=== PATIENT | male | born 1980 | race Caucasian/White ===

== ENCOUNTER 2017-07-15 07:17 | Inpatient (IN) | payer OTHER ==
[~2017-07-15] VITALS: Ht 185.4 cm; Wt 135.2 kg
--- NOTE | 2017-07-15 07:40 | ED GI/GU/ABDOMINAL COMPLAINT ---
History of Present Illness General Chief Complaint: Abdominal Pain/Flank Pain Stated Complaint: SIDED ABD PAIN Source: patient, family Exam Limitations: no limitations Vital Signs & Intake/Output Vital Signs & Intake/Output Vital Signs Date Time Temp Pulse Resp B/P B/P Pulse O2 O2 Flow FiO2 Mean Ox Delivery Rate 07/15 1337 96.4 73 18 152/98 96 07/15 1212 97.9 82 18 148/82 98 Nasal 70% Cannula 07/15 1055 98 Nasal 60% Cannula 07/15 0904 88 Nasal 6.0L Cannula 07/15 0904 97.5 86 18 180/98 94 Nasal 2.0L Cannula 07/15 0840 93 Non 100% ReBreather 07/15 0747 97 Room Air 07/15 0721 72 18 174/131 98 Room Air Allergies Coded Allergies: No Known Allergies (07/15/17) Reconcile Medications No Known Home Medications Triage Note: COMPLAINS OF SUDDEN ONSET SHARP LLQ ABD PAIN AND NAUSEA AT 0500 . UNABLE TO GET TEMP AT TRIAGE. PT NOTED TO BE SWEATY AND BP ELEVATED Triage Nurses Notes Reviewed? yes HPI: Patient is an otherwise healthy 36-year-old male who presents today with acute onset left lower quadrant and left flank pain which woke him from sleep early this morning. He is diaphoretic, clammy, and clearly in significant distress. He denies any history of abdominal surgery, intra-abdominal pathology in the past, diverticulitis, or ureterolithiasis. He has no chest pain, dyspnea, or other constitutional symptoms. Time of onset was 5 AM, acute, unrelenting, not made worse by position. Past History Travel History Traveled to [place] past 21 day No Medical History Any Pertinent Medical History? none Neurological: NONE EENT: NONE Cardiovascular: NONE Respiratory: NONE Hepatic: NONE Renal: NONE Musculoskeletal: NONE Psychiatric: NONE Endocrine: NONE Blood Disorders: NONE Cancer(s): NONE Surgical History Surgical History: none Psychosocial History What is your primary language Maltese Tobacco Use: Never used ETOH Use: denies use Illicit Drug Use: denies illicit drug use Family History Hx Contributory? No Review of Systems Review of Systems Constitutional: Reports: see HPI, diaphoresis. EENTM: Reports: no symptoms. Respiratory: Reports: no symptoms. Cardiovascular: Reports: no symptoms. GI: Reports: see HPI, abdominal pain, nausea. Genitourinary: Reports: see HPI. Denies: dysuria, frequency, hematuria, hesitation, pain. Musculoskeletal: Reports: back pain. Skin: Reports: no symptoms. Neurological/Psychological: Reports: no symptoms. Hematologic/Endocrine: Reports: no symptoms. Immunologic/Allergic: Reports: no symptoms. All Other Systems: Reviewed and Negative Physical Exam Physical Exam Gastrointestinal: tenderness Comments: General: Moderate to severe discomfort from flank pain. HEENT: Inspection of the head reveals a normocephalic cranium with no signs of trauma. Ophtho: Extraocular muscles are intact and pupils are equal and reactive to light bilaterally with no afferent pupillary defect. The sclera are noninjected , and there is no obvious discharge. Neck: The trachea is midline, there is no obvious asymmetry or mass over the thyroid, and there is no midline cervical spine tenderness Respiratory: The lungs are clear and equal to auscultation bilaterally without wheezes, rales, or rhonchi. The patient exhibits no signs of labored breathing. Cardiac: Regular rhythm and non-tachycardic without appreciable murmurs on auscultation. No obvious JVD. GI: Examination of the abdomen reveals left-sided flank pain from the left CVA region radiating around in a ureteral distribution toward the left lower quadrant. Negative Tai's sign, negative McBurney's point tenderness, negative Yousuf sign, negative Schroeder-Sneed sign, and no signs of peritonitis whatsoever on percussion or deep palpation. The skin is intact with no sign of trauma or infection. : Deferred Neuro: The patient is oriented to person, place, time, and situation, with no obvious focal motor deficits. There were no sensory deficits, and the patient exhibit purposeful movement of all 4 extremities. Cranial nerves II through XII are intact, and gait is normal. Behavioral: Anxious and in distress. Dermatologic: Dermatologic examination reveals no diffuse rashes or exanthems, no petechiae, no ecchymoses, and no other signs of erythema or infection. Core Measures ACS in differential dx? No Sepsis Present: No Sepsis Focused Exam Completed? No Progress Differential Diagnosis: AMI, PE, MYOCARDITIS, CARDIOMYOPATHY,MULTIPLE OTHER POSSIBILITIES Plan of Care: Orders Procedure Date/time Status CBC WITHOUT DIFFERENTIAL 07/16 0600 Active EKG 07/16 0000 Active Regular Diet 07/15 D Active EKG 07/15 1800 Active Pathway - chart 07/15 1316 Active House Staff 07/15 1316 Active Code Status 07/15 1316 Active ECHOCARDIOGRAM 07/15 1316 Active Patient Data 07/15 1259 Active TROPONIN LEVEL 07/15 1250 Active Add-on Test (ER Only) 07/15 1249 Active ED Holding Orders 07/15 1227 Active Admit to inpatient 07/15 1227 Active Code Status 07/15 1227 Complete OXYGEN SETUP (GEN) 07/15 1055 Complete EKG 07/15 1005 Active Add-on Test (ER Only) 07/15 0909 Active THERAPIST ORDERS 07/15 0900 Complete OXYGEN SETUP (GEN) 07/15 0900 Complete OXYGEN SETUP (GEN) 07/15 0850 Complete AEROSOL (GEN) 07/15 0840 Complete TROPONIN LEVEL 07/15 0802 Complete B-TYPE NATRIURETIC PEP (BNP) 07/15 0802 Complete Intake & Output 07/15 0747 Active URINALYSIS 07/15 0735 Complete COMPREHENSIVE METABOLIC PANEL 07/15 0735 Complete CBC WITHOUT DIFFERENTIAL 07/15 0735 Complete TRC EVALUATION (GEN) 07/15 UNK Active THERAPIST ORDERS 07/15 UNK Complete VTE Mechanical Prophylaxis 07/15 UNK Active Intake & Output 07/15 UNK Active Laboratory Tests 07/15/17 1352: Troponin I Pending 07/15/17 0940: Urine Color YEL, Urine Clarity HAZY H, Urine pH 6.0, Ur Specific [place] 1.015, Urine Protein NEG, Urine Ketones NEG, Urine Nitrite NEG, Urine Bilirubin NEG, Urine Urobilinogen 0.2, Ur Leukocyte Esterase NEG, Ur Microscopic SEDIMENT EXAMINED, Urine RBC 25-50 H, Urine WBC 1-3 H, Ur Epithelial Cells FEW, Hyaline Casts RARE H, Urine Hemoglobin LARGE H, Urine Glucose NEG 07/15/17 0859: Bkf-X-Lvzohsbwhbp Pept Cancelled, D-Dimer High Sensitivty Cancelled 07/15/17 0802: Anion Gap 10, Estimated GFR > 60, BUN/Creatinine Ratio 15.0, Glucose 150 H, Calcium 8.9, Total Bilirubin 0.9, AST 18, ALT 37, Alkaline Phosphatase 56, Troponin I 0.06, Xcr-Y-Dziggwwtrpz Pept 69.8, Total Protein 6.6, Albumin 3.8, Globulin 2.8, Albumin/Globulin Ratio 1.4, CBC w Diff NO MAN DIFF REQ, RBC 5.74, MCV 85.6, MCH 29.4, MCHC 34.3, RDW 12.9, MPV 7.3 L, Gran % 79.6 H, Lymphocytes % 15.6 L, Monocytes % 3.2, Eosinophils % 1.3, Basophils % 0.3, Absolute Granulocytes 7.9 H, Absolute Lymphocytes 1.6, Absolute Monocytes 0.3, Absolute Eosinophils 0.1, Absolute Basophils 0 Initial ED EKG: normal axis, none, normal intervals, normal p-waves, normal QRS complex, normal sinus rhythm, NSR, rhythm Comments: 0930 hours: Patient had an acute episode of onset of dyspnea. His lungs sounded rhonchorous diffusely with expiratory wheezing. It was unclear whether this was a reaction to the hydromorphone or something else entirely. I prescribed a DuoNeb which was administered by respiratory, as well as dexamethasone 10 mg. We stopped his fluids and obtained a chest x-ray which showed bilateral mild pulmonary edema. PE was considered when the patient's oxygen saturation dropped to the low 80s despite nasal cannula oxygenation. We upgraded him to high flow nasal cannula oxygenation when nonrebreather mask became contraindicated by nausea and vomiting. Oxygenation stabilized, and thankfully CT showed no evidence of PE. It did show groundglass opacity and unexplained pulmonary edema. This is as of yet unexplained. Cardiology paged. Departure Departure Time of Disposition: 1200 Disposition: STILL A PATIENT Condition: Stable Clinical Impression Primary Impression: Flash pulmonary edema Secondary Impressions: Kidney stone Departure Forms: Customer Survey General Discharge Information Prescriptions: Current Visit Scripts No Known Home Medications Admission Note Spoke With: Sherry MCKEON,Antoni Haddad Documentation of Exam: Documentation of any treatments & extenuating circumstances including Concerns Regarding Discharge (functional status, medication knowledge or non-compliance, living conditions, etc.) that warrant an admission rather than observation: Patient presented today for flank pain which was determined to be secondary to ureterolithiasis with a 4 mm stone visualized on CT. Pain was controlled and urology was consulted for recommendations. However, after fluid resuscitation the patient, who previously has had no cardiopulmonary disease, developed acute onset dyspnea with rhonchorous breath sounds and crackles. Chest x-ray showed bilateral pulmonary edema and subsequent CT scan to rule out PE showed no clot but confirmed groundglass opacity with bilateral fluid overload. BNP was negative, however the reason for the patient's pulmonary edema is unknown. Given this, he will require hospitalization for further cardiology workup, cardiac monitoring, and oxygen administration. I feel that discharge home would pose an unacceptably high risk of decompensation and morbidity. Critical Care Note Critical Care Note Critical Care Time: 30-74 min Comments: Critical care time spent >60 minutes. The patient was suffering from a critical illness that acutely impairs one or more vital organ systems and there is a high probability of imminent or life threatening deterioration in the patient's condition. During this time I was personally involved in activities including high flow nasal cannula oxygen therapy, beta agonists, consideration of noninvasive positive pressure ventilation, consulting multiple specialists, and decision making of high complexity to assess, manipulate, and support vital organ system failure (in this case, flash pulmonary edema without provocation) and/or to prevent further life threatening deterioration of the patient's condition. The failure to initiate these interventions on an urgent basis would likely result in sudden, clinically significant or life threatening deterioration in the patient's condition.
--- NOTE | 2017-07-15 08:20 | CT SCAN REPORT ---
EXAMINATION: CT ABDOMEN AND PELVIS WITHOUT CONTRAST CLINICAL INFORMATION: Left-sided pain. Nephrolithiasis. COMPARISON: None. TECHNIQUE: Contiguous axial thin section helical images of the abdomen and pelvis were performed without oral or IV contrast. The data set was reformatted in the coronal and sagittal planes and reviewed on an independent workstation. DLP: 1483 mGy-cm. FINDINGS: There is mild dependent bibasilar atelectasis. The visualized lung bases are otherwise clear. The visualized portions of the heart are unremarkable. The liver is of normal size and decreased attenuation without focal lesions nor intrahepatic biliary ductal dilation. A normal gallbladder is identified. There is no wall thickening or discernible pericholecystic fluid. The pancreas and adrenal glands are unremarkable. The spleen is of normal contour and attenuation. It is enlarged measuring 13.9 cm in greatest dimension. Both kidneys are of normal size and attenuation without nephrolithiasis. There is left grade 2 hydroureteronephrosis secondary to a 4 mm obstructive left UVJ calculus. There is left periureteral and perinephric stranding. There is no abdominal free fluid. There is neither mesenteric nor retroperitoneal lymphadenopathy. Normal unopacified loops of small and large bowel are identified. A normal appendix is identified. There is no pelvic free fluid. The urinary bladder is unremarkable. There is neither pelvic nor inguinal lymphadenopathy. Bone windows: Neither sclerotic nor lytic bone lesions are identified. There are bilateral L5 pars defects. There is mild anterior displacement of L5 in relation to S1. There is moderate disc height loss at L5/S1. IMPRESSION: Left grade 2 hydroureteronephrosis secondary to an obstructive 4 mm calculus at the left UVJ. Hepatic steatosis. Mild splenomegaly. 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
[2017-07-15 08:21] LABS: ABSOLUTE BASOPHIL COUNT 0 /CUMM (0.0-0.2); ABSOLUTE EOSINOPHIL COUNT 0.1 /CUMM (0.0-0.7); ABSOLUTE GRANULOCYTE CT 7.9 /CUMM (1.4-6.5); ABSOLUTE LYMPH COUNT 1.6 /CUMM (1.2-3.4); ABSOLUTE MONOCYTE COUNT 0.3 /CUMM (0.10-0.60); BASOPHIL % 0.3 % (0.0-2.0); EOSINOPHIL % 1.3 % (0-5); GRANULOCYTE % 79.6 % (42.2-75.2); HEMATOCRIT 49.1 % (42-52); MEAN CORPUSCULAR HGB 29.4 PG (27.0-31.0); MEAN CORPUSCULAR HGB CONC 34.3 G/DL (33.0-37.0); MEAN CORPUSCULAR VOLUME 85.6 FL (80.0-94.0); MEAN PLATELET VOLUME 7.3 FL (7.4-10.4); PLATELET COUNT 180 /CUMM (130-400); RBC DISTRIBUTION WIDTH 12.9 % (11.5-14.5); RED BLOOD CELL CT 5.74 /CUMM (4.70-6.10); WHITE BLOOD CELL COUNT 9.9 /CUMM (4.8-10.8)
--- NOTE | 2017-07-15 09:05 | RADIOLOGY REPORT ---
EXAMINATION: CHEST 1 VIEW CLINICAL INFORMATION: Wheezing, dyspnea. COMPARISON: None. TECHNIQUE: An AP view of the chest is provided. FINDINGS: The cardiac silhouette is not enlarged. The mediastinal and hilar contours are unremarkable. There are neither pleural effusions nor pneumothoraces. Throughout both lungs, there is interstitial prominence, slightly greater on the right in comparison to the left. There are no consolidations. The osseous structures are unremarkable. IMPRESSION: Mildly asymmetric interstitial prominence present throughout both lungs. This is nonspecific, though could be printing supplies sales representative of mild vascular congestion or a lower respiratory tract viral infectious or inflammatory process. There are no focal consolidations
--- NOTE | 2017-07-15 09:52 | CT SCAN REPORT ---
EXAMINATION: CT PULMONARY EMBOLISM STUDY CLINICAL INFORMATION: Dyspnea. Hypoxia. COMPARISON: Same day chest radiograph. TECHNIQUE: Contiguous helical images of the chest were obtained following the administration of IV contrast. Multiplanar reconstructions were performed. MIPS were obtained and reviewed. DLP: 564 mGy-cm. CONTRAST: 95 mL of Optiray 320 were administered without incident. FINDINGS: The heart is of normal size. There is no pericardial effusion. The great vessels are unremarkable. Specifically, there is no pulmonary arterial filling defect. There is no CT evidence for pulmonary embolism. There are no chest wall masses. Review of lung windows demonstrates that there are neither pleural effusions nor pneumothoraces. There is patchy groundglass opacification within both lower lobes, right greater than left as well as mild opacification within both upper lobes. In addition, there is interlobular septal thickening. There are no pulmonary parenchymal nodules. Limited evaluation of the upper abdomen demonstrates that the liver is of normal size and diffuse decreased attenuation without focal lesions. Normal adrenal glands are identified. IMPRESSION: No CT evidence for pulmonary embolism. Nonspecific multifocal round glass opacification along with diffuse interlobular septal thickening. The appearance is nonspecific, though I favor that this represents vascular congestion or fluid overload over an infectious or inflammatory process.
--- NOTE | 2017-07-15 13:23 | History & Physical ---
Antwon Matson 07/15/17 1321: General Information and HPI MD Statement: I have seen and personally examined ADI KHAN and documented this H&P. The patient is a 36 year old M who presented with a patient stated chief complaint of left lower quadrant pain. Source of Information: patient, family Exam Limitations: no limitations History of Present Illness: 36-year-old gentleman with no past medical history presents to [facility] ED with a chief complaint of left lower quadrant pain that started suddenly this morning at around 5:30 AM. The pain was located in the left lower quadrant, described as sharp in nature, 10/10 in intensity when worst, radiating from the left flank going down to the groin and to scrotum, with no alleviating or aggravating factors, prompting his current visit to the ED. In the ED, he was given IV Dilaudid, IV Zofran and IV fluids. Following infusion of 800 mL of normal saline, patient started expressing shortness of breath, with no chest pain or palpitations. This continued for several minutes, and patient was found to be hypoxemic to 70s. He was then given breathing treatment and put on high flow oxygen, following which his oxygenation improved. An x-ray was obtained, which showed mild pulmonary edema. A concern for PE was raised, a CT obtained was negative for PE but did confirm x-ray findings of vascular congestion and pulmonary edema. After breathing treatments, high flow oxygen, IV Decadron patient's oxygenation as well as breathing continued to improve. During the interview, patient had minimal wheezes (end expiratory), looked comfortable, able to complete sentences and without any left lower quadrant pain, chest pain or palpitations. He denied any lightheadedness or dizziness. He denied any constipation, diarrhea, nausea or vomiting. Other systems reviewed and negative, except as above. Allergies/Medications Allergies: Coded Allergies: No Known Allergies (07/15/17) Home Med list No Known Home Medications Past History Travel History Traveled to [place] past 21 day No Medical History Neurological: NONE EENT: NONE Cardiovascular: NONE Respiratory: NONE Hepatic: NONE Renal: NONE Musculoskeletal: NONE Psychiatric: NONE Endocrine: NONE Blood Disorders: NONE Cancer(s): NONE Surgical History Surgical History: none Past Family/Social History Family History Relations & Conditions if any Relation not specified for: No pertinent family history Psychosocial History Smoking Status: Never Smoked ETOH Use: denies use Illicit Drug Use: denies illicit drug use Review of Systems Review of Systems Constitutional: Reports: see HPI. Exam & Diagnostic Data Last 24 Hrs of Vital Signs/I&O Vital Signs Date Time Temp Pulse Resp B/P B/P Pulse O2 O2 Flow FiO2 Mean Ox Delivery Rate 07/15 1337 96.4 73 18 152/98 96 07/15 1212 97.9 82 18 148/82 98 Nasal 70% Cannula 07/15 1055 98 Nasal 60% Cannula 07/15 0904 88 Nasal 6.0L Cannula 07/15 0904 97.5 86 18 180/98 94 Nasal 2.0L Cannula 07/15 0840 93 Non 100% ReBreather 07/15 0747 97 Room Air 07/15 0721 72 18 174/131 98 Room Air Intake & Output 07/15 1600 07/15 0800 07/15 0000 Intake Total 800 Output Total 600 Balance -600 800 Intake, IV 800 Output, Urine 600 Patient 330 lb Weight Physical Exam General Appearance Alert, Oriented X3, Cooperative HEENT Atraumatic, PERRLA, EOMI Cardiovascular Regular Rate, Normal S1, Normal S2, Distant sounds Lungs Clear to Auscultation, Normal Air Movement Abdomen Normal Bowel Sounds, Soft, No Tenderness Extremities No Clubbing, No Cyanosis Last 24 Hrs of Labs/Anthony: Laboratory Tests 07/15/17 0940: Urine Color YEL, Urine Clarity HAZY H, Urine pH 6.0, Ur Specific [place] 1.015, Urine Protein NEG, Urine Ketones NEG, Urine Nitrite NEG, Urine Bilirubin NEG, Urine Urobilinogen 0.2, Ur Leukocyte Esterase NEG, Ur Microscopic SEDIMENT EXAMINED, Urine RBC 25-50 H, Urine WBC 1-3 H, Ur Epithelial Cells FEW, Hyaline Casts RARE H, Urine Hemoglobin LARGE H, Urine Glucose NEG 07/15/17 0859: Kvd-M-Bzvvedronkf Pept Cancelled, D-Dimer High Sensitivty Cancelled 07/15/17 0802: Anion Gap 10, Estimated GFR > 60, BUN/Creatinine Ratio 15.0, Glucose 150 H, Calcium 8.9, Total Bilirubin 0.9, AST 18, ALT 37, Alkaline Phosphatase 56, Troponin I 0.06, Mkg-V-Mrdtamzmmmc Pept 69.8, Total Protein 6.6, Albumin 3.8, Globulin 2.8, Albumin/Globulin Ratio 1.4, CBC w Diff NO MAN DIFF REQ, RBC 5.74, MCV 85.6, MCH 29.4, MCHC 34.3, RDW 12.9, MPV 7.3 L, Gran % 79.6 H, Lymphocytes % 15.6 L, Monocytes % 3.2, Eosinophils % 1.3, Basophils % 0.3, Absolute Granulocytes 7.9 H, Absolute Lymphocytes 1.6, Absolute Monocytes 0.3, Absolute Eosinophils 0.1, Absolute Basophils 0 Diagnostic Data EKG Results NSR, non specific ST-T changes. CXR Results IMPRESSION: Mildly asymmetric interstitial prominence present throughout both lungs. This is nonspecific, though could be solar sales representative and assessor of mild vascular congestion or a lower respiratory tract viral infectious or inflammatory process. There are no focal consolidations Other Results Chest CTA: IMPRESSION: No CT evidence for pulmonary embolism. Nonspecific multifocal round glass opacification along with diffuse interlobular septal thickening. The appearance is nonspecific, though I favor that this represents vascular congestion or fluid overload over an infectious or inflammatory process. Assessment/Plan Assessment: 36-year-old gentleman with no known past medical history in the absence of any pre-existing systolic or diastolic dysfunction developed sudden onset acute pulmonary vascular congestion likely secondary to acute increase in LV diastolic pressure with rapid accumulation in the pulmonary interstitial and alveolar spaces in the setting of hypertensive urgency (extremely elevated diastolic pressures). Excess afterload in addition to fluid overload may have precipitated decompensation and Mr. Khan. 1. Acute pulmonary vascular congestion. Admit to telemetry. Rule out myocardial ischemia/infarction with serial troponins and EKG. Echocardiogram to rule out any valvular or LVOT issues. Cardiology consult. TRC nebs. Continue supplemental oxygen with high flow, to maintain saturations greater than 90%. Outpatient polysomnography to rule out obstructive sleep apnea. May check renal ultrasound to rule out renal artery stenosis, as this is a common risk factor for flash pulmonary edema with minimal fluid challenge. 2. Obstructive calculus. Encourage p.o. intake. Urology consult. Optimal pain control. Symptomatic treatment for nausea. Full code. Mechanical prophylaxis (Vinny Score - 2); and encourage ablation ( pharmacological prophylaxis not warranted in this active 36-year-old) Regular diet. As Ranked By This Provider Problem List: 1. Kidney stone 2. Flash pulmonary edema Core Measures/Misc (10/28) Acute Coronary Syndrome ACS Diagnosis: No Congestive Heart Failure Congestive Heart Failure Diagnosis No Cerebrovascular Accident CVA/TIA Diagnosis: No VTE (View Protocol) VTE Risk Factors Obesity No Mechanical VTE Prophylaxis d/t N/A MechProphylax Ordered No VTE Pharm Prophylaxis d/t LowRisk-No Interven Req'd Sepsis (View protocol) Sepsis Present: No If YES complete Sepsis Event Note If YES complete Sepsis Event Note Patricio Mack 07/15/17 1528: Core Measures/Misc (10/28) Sepsis (View protocol) If YES complete Sepsis Event Note If YES complete Sepsis Event Note Attending MD Review Statement Attending Statement Attending MD Statement: examined this patient, discuss w/resident/PA/RESOLUTE PROFESSIONAL, agreed w/resident/PA/RESOLUTE PROFESSIONAL, discussed with family, reviewed EMR data (avail), discussed with nursing, discussed with case mgmt, reviewed images, amended to note Attending Assessment/Plan: 36 o/m with no chest pain and shortness of breath and elevated cardiac enzymes with morbid obesity BMI 43.5 is admitted to telemetry monitoring for type 2 MO r /o ACS and accelerated hypertension. Patient bp is improved now. Obtain Serial cardiac enzmyes and cardiology consult, give asa/statin/b meagan/nitrates. Nephrolithiasis with flank pain and hydroureteronephrosis. Obtain urology consult 4mm at [facility]. Stable creatinine. gi/dvt prophyalxis, full code plan of care d/sat patient bedside.
[2017-07-15 15:00] VITALS: BP 140/90
--- NOTE | 2017-07-15 17:47 | Cons- Cardiology ---
General Information and HPI Consulting Request Date of Consult: 07/15/17 Requested By: Patricio Mack MD History of Present Illness: The patient is a 36-year-old male with no significant past medical history who presented with left lower quadrant pain which began at 5:30 AM to the pain was sharp in character and was a 9 or 10 out of 10 in severity. It lasted for hours before eventually resolving in the emergency department. The patient was diagnosed with renal stone and associated hydroureteronephrosis. He was treated with pain medications and with IV fluid. After receiving 100 mL normal saline the patient developed shortness of breath. He was noted to be hypoxic in the 70s. X-ray was performed which revealed mild pulmonary edema. CTA of the chest was negative for pulmonary embolism, and revealed vascular congestion. The patient was noted to have significant elevated blood pressure on his mentation. He developed significant wheezes associated with the shortness of breath. He reports that he is feeling better now. Shortness of breath is significantly improved Allergies/Medications Allergies: Coded Allergies: No Known Allergies (07/15/17) Home Med List: No Known Home Medications Current Medications: Current Medications Sig/Kayla Start time Last Medication Dose Route Stop Time Status Admin Albuterol Sulfate 3 ML ONCE ONE 07/15 0830 DC 07/15 INH 07/15 0831 0840 Aspirin 325 MG ONCE ONE 07/15 1500 DC / PO / 1501 1611 Atorvastatin Calcium 40 MG 1700 06/ 1700 AC 06/04 PO 1611 Dexamethasone 10 MG ONCE ONE 07/15 0845 DC / IV PUSH / 0846 0904 Hydromorphone HCl 0 .STK-MED ONE 07/15 0807 DC .ROUTE Hydromorphone HCl 1 MG ONCE ONE 07/15 0800 DC 06/04 IV 06/04 0801 0802 Hydromorphone HCl 0 .STK-MED ONE 07/15 0746 DC .ROUTE Hydromorphone HCl 1 MG ONCE ONE 07/15 0745 DC /04 IV / 0746 0752 Ipratropium [place] 2.5 ML ONCE ONE 07/15 0830 DC /04 INH / 0831 0840 Metoprolol Tartrate 12.5 MG ONCE ONE 07/15 1500 DC 06/ PO 06/ 1501 1611 Ondansetron HCl 4 MG ONCE ONE 07/15 0830 DC IV 07/15 0931 0902 Ondansetron HCl 0 .STK-MED ONE 07/15 0905 DC .ROUTE Ondansetron HCl 4 MG ONCE ONE 07/15 744 DC / IV 07/15 0746 0752 Ondansetron HCl 0 .STK-MED ONE 07/15 0645 DC .ROUTE Sodium Chloride 1,000 ML BOLUS ONE 07/15 744 DC / IV 07/15 0844 0752 Past History Travel History Traveled to [place] past 21 day No Medical History Blood Transfusion Hx: No Neurological: NONE EENT: NONE Cardiovascular: NONE Respiratory: NONE Gastrointestinal: NONE Hepatic: NONE Renal: NONE Musculoskeletal: NONE Psychiatric: NONE Endocrine: NONE Blood Disorders: NONE Cancer(s): 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 Home Smoking Status: Never Smoked ETOH Use: denies use Illicit Drug Use: denies illicit drug use Exam & Diagnostic Data Vital Signs and I&O Vital Signs Date Time Temp Pulse Resp B/P B/P Pulse O2 O2 Flow FiO2 Mean Ox Delivery Rate 07/15 1838 Room Air Room Air 07/15 1611 74 140/60 07/15 1500 92 Nasal 4.0L Cannula 07/15 1500 97.6 74 20 140/90 92 Nasal 4.0L Cannula 07/15 1337 96.4 73 18 152/98 96 07/15 1305 95 Nasal 5.0L Cannula 07/15 1212 97.9 82 18 148/82 98 Nasal 70% Cannula 07/15 1055 98 Nasal 60% Cannula 07/15 0904 88 Nasal 6.0L Cannula 07/15 0904 97.5 86 18 180/98 94 Nasal 2.0L Cannula 07/15 0840 93 Non 100% ReBreather 07/15 0747 97 Room Air 07/15 0721 72 18 174/131 98 Room Air Intake & Output 07/15 1600 07/15 0800 07/15 0000 07/14 1600 07/14 0800 07/14 0000 Intake Total 800 Output Total 600 Balance -600 800 Intake, IV 800 Output, Urine 600 Patient 321 lb 330 lb Weight Weight Bed scale Measurement Method Physical Exam: Gen: The patient is in no acute distress HEENT: Normal nose, ears, and oropharynx. Pupils equal bilaterally. Conjunctiva normal. Neck: Supple with no JVD, no masses, and no thyromegaly Lungs: Clear to auscultation with normal respiratory effort Heart: RRR, S1, S2, no murmurs. No peripheral edema, 2+ pulses in the lower extremities bilaterally Abdomen: Soft, nontender, no masses. No hepatomegaly. No splenomegaly Extremities: No clubbing or cyanosis. Normal muscle strength in the upper and lower extremities Skin: Normal skin turgor with no skin ulcers or lesions noted. Neuro: Cranial nerves intact. Sensation intact Psych: Alert and oriented x 3 with appropriate affect Labs/Anthony Results: Laboratory Tests 07/15 07/15 07/15 1823 1352 0940 Chemistry Troponin I (<0.11 ng/ml) Pending 0.43 *H Itp-Z-Mopblmnckfw Pept (<125 pg/mL) 160 H Urines Urine Color (YEL,AMB,STR) YEL Urine Clarity (CLEAR) HAZY H Urine pH (5.0 - 8.0) 6.0 Ur Specific [place] (1.001 - 1.035) 1.015 Urine Protein (NEG,<30 MG/DL) NEG Urine Ketones (NEG) NEG Urine Nitrite (NEG) NEG Urine Bilirubin (NEG) NEG Urine Urobilinogen (0.1 - 1.0 EU/dl) 0.2 Ur Leukocyte Esterase (NEG) NEG Ur Microscopic SEDIMENT EXAMINED Urine RBC (0 - 5 /HPF) 25-50 H Urine WBC (0 - 2 /HPF) 1-3 H Ur Epithelial Cells (NONE,FEW) FEW Hyaline Casts (0/LPF) RARE H Urine Hemoglobin (NEG) LARGE H Urine Glucose (N MG/DL) NEG 07/15 07/15 0859 0802 Chemistry Sodium (137 - 145 mmol/L) 142 Potassium (3.5 - 5.1 mmol/L) 4.2 Chloride (98 - 107 mmol/L) 105 Carbon Dioxide (22 - 30 mmol/L) 27 Anion Gap (5 - 16) 10 BUN (9 - 20 mg/dL) 15 Creatinine (0.7 - 1.2 mg/dL) 1.0 Estimated GFR (>60 ml/min) > 60 BUN/Creatinine Ratio (7 - 25 %) 15.0 Glucose (65 - 99 mg/dL) 150 H Calcium (8.4 - 10.2 mg/dL) 8.9 Total Bilirubin (0.2 - 1.3 mg/dL) 0.9 AST (17 - 59 U/L) 18 ALT (21 - 72 U/L) 37 Alkaline Phosphatase (< 127 U/L) 56 Troponin I (<0.11 ng/ml) 0.06 Kaq-A-Uszqlffjuhu Pept (<125 pg/mL) Cancelled 69.8 Total Protein (6.3 - 8.2 g/dL) 6.6 Albumin (3.5 - 5.0 g/dL) 3.8 Globulin (1.9 - 4.2 gm/dL) 2.8 Albumin/Globulin Ratio (1.1 - 2.2 %) 1.4 Coagulation D-Dimer High Sensitivty Cancelled Hematology CBC w Diff NO MAN DIFF REQ WBC (4.8 - 10.8 /CUMM) 9.9 RBC (4.70 - 6.10 /CUMM) 5.74 Hgb (14.0 - 18.0 G/DL) 16.9 Hct (42 - 52 %) 49.1 MCV (80.0 - 94.0 FL) 85.6 MCH (27.0 - 31.0 PG) 29.4 MCHC (33.0 - 37.0 G/DL) 34.3 RDW (11.5 - 14.5 %) 12.9 Plt Count (130 - 400 /CUMM) 180 MPV (7.4 - 10.4 FL) 7.3 L Gran % (42.2 - 75.2 %) 79.6 H Lymphocytes % (20.5 - 51.1 %) 15.6 L Monocytes % (1.7 - 9.3 %) 3.2 Eosinophils % (0 - 5 %) 1.3 Basophils % (0.0 - 2.0 %) 0.3 Absolute Granulocytes (1.4 - 6.5 /CUMM) 7.9 H Absolute Lymphocytes (1.2 - 3.4 /CUMM) 1.6 Absolute Monocytes (0.10 - 0.60 /CUMM) 0.3 Absolute Eosinophils (0.0 - 0.7 /CUMM) 0.1 Absolute Basophils (0.0 - 0.2 /CUMM) 0 Diagnostic Data EKG Results EKG tracing is independently reviewed, and reveals normal sinus rhythm at 73, normal EKG CXR Results Mildly asymmetric interstitial prominence present throughout both lungs. This is nonspecific, though could be marketing sales representative of mild vascular congestion or a lower respiratory tract viral infectious or inflammatory process. There are no focal consolidations Other Results Abdominal CT scan: Left grade 2 hydroureteronephrosis secondary to an obstructive 4 mm calculus at the left UVJ. Hepatic steatosis. Mild splenomegaly. 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 CTA chest: No CT evidence for pulmonary embolism. Nonspecific multifocal round glass opacification along with diffuse interlobular septal thickening. The appearance is nonspecific, though I favor that this represents vascular congestion or fluid overload over an infectious or inflammatory process. Assessment/Plan Assessment/Plan 36-year-old male with no cardiac history presenting with abdominal pain secondary to obstructing renal stone. Blood pressure was elevated on presentation. He was treated with IV fluids and developed shortness of breath with evidence of pulmonary edema. Troponin was initially negative and was 0.43 on repeat. Plan: * Monitor on telemetry * Echocardiogram * Follow serial troponin * Continue aspirin * Continue statin Consult Acknowledgment - Thank you for your consult request.
[2017-07-15 20:56] VITALS: BP 146/74
[2017-07-16 06:54] VITALS: BP 116/80
[2017-07-16 07:55] LABS: ABSOLUTE BASOPHIL COUNT 0 /CUMM (0.0-0.2); ABSOLUTE EOSINOPHIL COUNT 0 /CUMM (0.0-0.7); ABSOLUTE GRANULOCYTE CT 7.7 /CUMM (1.4-6.5); ABSOLUTE LYMPH COUNT 1.4 /CUMM (1.2-3.4); ABSOLUTE MONOCYTE COUNT 0.4 /CUMM (0.10-0.60); BASOPHIL % 0.2 % (0.0-2.0); EOSINOPHIL % 0 % (0-5); GRANULOCYTE % 80.7 % (42.2-75.2); MEAN CORPUSCULAR HGB 29.5 PG (27.0-31.0); MEAN CORPUSCULAR VOLUME 86.6 FL (80.0-94.0); MEAN PLATELET VOLUME 7.8 FL (7.4-10.4); PLATELET COUNT 181 /CUMM (130-400); RBC DISTRIBUTION WIDTH 13.6 % (11.5-14.5); RED BLOOD CELL CT 4.83 /CUMM (4.70-6.10); WHITE BLOOD CELL COUNT 9.5 /CUMM (4.8-10.8)
[2017-07-16 08:19] LABS: HEMATOCRIT 41.8 % (42-52)
--- NOTE | 2017-07-16 08:37 | Cons- Urology ---
General Information and HPI Consulting Request Date of Consult: 07/16/17 Requested By: Patricio Mack MD Reason for Consult: ureter stone with colic: hydro. Source of Information: patient, family, old records Exam Limitations: no limitations History of Present Illness: 36 year old with severe onset of renal colic; came to ER With worsening pain and SOB. No CP: To be admitted for pulmo edema. now pain free-has not passed stone. Discussed with pt CT findings and offer of ureteroscopy to extract stone -pt declined Allergies/Medications Allergies: Coded Allergies: No Known Allergies (07/15/17) Home Med List: No Known Home Medications Current Medications: Current Medications Sig/Kayla Start time Last Medication Dose Route Stop Time Status Admin Aspirin 325 MG ONCE ONE 07/15 1500 DC / PO 06/ 1501 1611 Atorvastatin Calcium 40 MG 1700 06/ 1700 AC 06/ PO 1611 Dexamethasone 10 MG ONCE ONE 07/15 0845 DC 06/ IV PUSH / 0846 0904 Metoprolol Tartrate 12.5 MG ONCE ONE 07/15 1500 DC 06/04 PO 06/04 1501 1611 Ondansetron HCl 4 MG ONCE ONE 07/15 0930 DC 06/04 IV 06/04 0931 0902 Ondansetron HCl 0 .STK-MED ONE 07/15 0905 DC .ROUTE Sodium Chloride 1,000 ML BOLUS ONE 07/15 0745 DC 06/04 IV 06/04 0844 0752 Past History Medical History Blood Transfusion Hx: No Neurological: NONE EENT: NONE Cardiovascular: NONE Respiratory: NONE Gastrointestinal: NONE Hepatic: NONE Renal: NONE Musculoskeletal: NONE Psychiatric: NONE Endocrine: NONE Blood Disorders: NONE 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 Home Smoking Status: Never Smoked ETOH Use: denies use Illicit Drug Use: denies illicit drug use Functional Ability ADLs Independent: dressing, eating, toileting, bathing. Ambulation: independent IADLs Independent: shopping, housework, finances, food prep, telephone, transportation , medication admin. Review of Systems Review of Systems Constitutional: Reports: no symptoms. EENTM: Denies: no symptoms. Cardiovascular: Denies: no symptoms. Respiratory: Reports: short of breath. GI: Reports: abdominal pain, distention. Genitourinary: Denies: no symptoms. Musculoskeletal: Denies: no symptoms. Skin: Denies: no symptoms. Exam & Diagnostic Data Vital Signs and I&O Vital Signs Date Time Temp Pulse Resp B/P B/P Pulse O2 O2 Flow FiO2 Mean Ox Delivery Rate 07/16 0554 98.3 66 18 116/80 94 Room Air 07/15 2056 99.1 67 18 146/74 93 Room Air 07/15 1838 Room Air Room Air 07/15 1611 74 140/60 07/15 1500 92 Nasal 4.0L Cannula 07/15 1500 97.6 74 20 140/90 92 Nasal 4.0L Cannula 07/15 1337 96.4 73 18 152/98 96 07/15 1305 95 Nasal 5.0L Cannula 07/15 1212 97.9 82 18 148/82 98 Nasal 70% Cannula 07/15 1055 98 Nasal 60% Cannula 07/15 0904 88 Nasal 6.0L Cannula 07/15 0904 97.5 86 18 180/98 94 Nasal 2.0L Cannula 07/15 0840 93 Non 100% ReBreather Intake & Output 07/16 1600 07/16 0800 07/16 0000 07/15 1600 07/15 0800 07/15 0000 Intake Total 0 480 800 Output Total 800 250 600 Balance -800 230 -600 800 Intake, IV 800 Intake, Oral 0 480 Output, Urine 800 250 600 Patient 298 lb 321 lb 330 lb Weight Weight Bed scale Bed scale Measurement Method Physical Exam General Appearance: well developed/nourished, obese Head: atraumatic, normal appearance Eyes: Bilateral: normal appearance. Respiratory: normal breath sounds Cardiovascular: regular rate/rhythm Gastrointestinal: normal bowel sounds, soft Back: no vertebral tenderness Extremities: normal inspection Skin: intact Last 24 Hours of Labs: Laboratory Tests 07/16 07/15 07/15 0620 1823 1352 Chemistry Sodium (137 - 145 mmol/L) 140 Potassium (3.5 - 5.1 mmol/L) 4.3 Chloride (98 - 107 mmol/L) 103 Carbon Dioxide (22 - 30 mmol/L) 28 Anion Gap (5 - 16) 9 BUN (9 - 20 mg/dL) 13 Creatinine (0.7 - 1.2 mg/dL) 0.8 Estimated GFR (>60 ml/min) > 60 BUN/Creatinine Ratio (7 - 25 %) 16.3 Troponin I (<0.11 ng/ml) 0.34 *H 0.43 *H Npi-M-Ueailrzqsih Pept (<125 pg/mL) 160 H Hematology CBC w Diff NO MAN DIFF REQ WBC (4.8 - 10.8 /CUMM) 9.5 RBC (4.70 - 6.10 /CUMM) 4.83 Hgb (14.0 - 18.0 G/DL) 14.2 Hct (42 - 52 %) 41.8 L MCV (80.0 - 94.0 FL) 86.6 MCH (27.0 - 31.0 PG) 29.5 MCHC (33.0 - 37.0 G/DL) 34.0 RDW (11.5 - 14.5 %) 13.6 Plt Count (130 - 400 /CUMM) 181 MPV (7.4 - 10.4 FL) 7.8 Gran % (42.2 - 75.2 %) 80.7 H Lymphocytes % (20.5 - 51.1 %) 14.4 L Monocytes % (1.7 - 9.3 %) 4.7 Eosinophils % (0 - 5 %) 0 Basophils % (0.0 - 2.0 %) 0.2 Absolute Granulocytes (1.4 - 6.5 /CUMM) 7.7 H Absolute Lymphocytes (1.2 - 3.4 /CUMM) 1.4 Absolute Monocytes (0.10 - 0.60 /CUMM) 0.4 Absolute Eosinophils (0.0 - 0.7 /CUMM) 0 Absolute Basophils (0.0 - 0.2 /CUMM) 0 07/15 07/15 0940 0859 Chemistry Zkq-I-Essiztqaxnd Pept Cancelled Coagulation D-Dimer High Sensitivty Cancelled Urines Urine Color (YEL,AMB,STR) YEL Urine Clarity (CLEAR) HAZY H Urine pH (5.0 - 8.0) 6.0 Ur Specific [place] (1.001 - 1.035) 1.015 Urine Protein (NEG,<30 MG/DL) NEG Urine Ketones (NEG) NEG Urine Nitrite (NEG) NEG Urine Bilirubin (NEG) NEG Urine Urobilinogen (0.1 - 1.0 EU/dl) 0.2 Ur Leukocyte Esterase (NEG) NEG Ur Microscopic SEDIMENT EXAMINED Urine RBC (0 - 5 /HPF) 25-50 H Urine WBC (0 - 2 /HPF) 1-3 H Ur Epithelial Cells (NONE,FEW) FEW Hyaline Casts (0/LPF) RARE H Urine Hemoglobin (NEG) LARGE H Urine Glucose (N MG/DL) NEG Imaging Results: PATIENT: ADI OLIVARES PRESENT AGE: 36 PATIENT ACCOUNT NO: [id number] : 78 LOCATION: [facility] ORDERING PHYSICIAN: Merrill Kearns DO SERVICE DATE: 07/15/17 EXAM TYPE: CAT - CT ABD & PELVIS W/O IV CONTRAS EXAMINATION: CT ABDOMEN AND PELVIS WITHOUT CONTRAST CLINICAL INFORMATION: Left-sided pain. Nephrolithiasis. COMPARISON: None. TECHNIQUE: Contiguous axial thin section helical images of the abdomen and pelvis were performed without oral or IV contrast. The data set was reformatted in the coronal and sagittal planes and reviewed on an independent workstation. DLP: 1483 mGy-cm. FINDINGS: There is mild dependent bibasilar atelectasis. The visualized lung bases are otherwise clear. The visualized portions of the heart are unremarkable. The liver is of normal size and decreased attenuation without focal lesions nor intrahepatic biliary ductal dilation. A normal gallbladder is identified. There is no wall thickening or discernible pericholecystic fluid. The pancreas and adrenal glands are unremarkable. The spleen is of normal contour and attenuation. It is enlarged measuring 13.9 cm in greatest dimension. Both kidneys are of normal size and attenuation without nephrolithiasis. There is left grade 2 hydroureteronephrosis secondary to a 4 mm obstructive left UVJ calculus. There is left periureteral and perinephric stranding. There is no abdominal free fluid. There is neither mesenteric nor retroperitoneal lymphadenopathy. Normal unopacified loops of small and large bowel are identified. A normal appendix is identified. There is no pelvic free fluid. The urinary bladder is unremarkable. There is neither pelvic nor inguinal lymphadenopathy. Bone windows: Neither sclerotic nor lytic bone lesions are identified. There are bilateral L5 pars defects. There is mild anterior displacement of L5 in relation to S1. There is moderate disc height loss at L5/S1. IMPRESSION: Left grade 2 hydroureteronephrosis secondary to an obstructive 4 mm calculus at the left UVJ. Hepatic steatosis. Mild splenomegaly. 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 DICTATED BY: Fidencio Mancia MD DATE/TIME DICTATED:07/15/17812 PATTERNMAKER HAND:JOHN DATE/TIME TRANSCRIBE Assessment/Plan Assessment/Plan left UVJ stone with obstruction:pt declined ureteroscopy recommendation. Copies To: Jarek Butler MD Consult Acknowledgment - Thank you for your consult request. 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 will need repeat renal US/ kub.
--- NOTE | 2017-07-16 09:58 | ECHOCARDIOGRAM REPORT ---
ADI OLIVARES Age: 36 : 1980 Gender: M Exam Date: 07/15/2017 19:43 Exam Location: [address] Ht (in): 73 Wt (lb): 330 BSA: 2.84 BP: 152 / 98 Ordering Physician: Antwon Matson MD Referring Physician: Fadi Cash MD Technologist: Melissa Camacho [facility] Room Number: 171 Indications: SHORTNESS OF BREATH Rhythm: Sinus Technical Quality: Good FINDINGS Left Ventricle Normal size left ventricle. Moderate concentric left ventricular hypertrophy. Normal left ventricular ejection fraction visually estimated at >60%. Right Ventricle Normal right ventricular size and function. Right Atrium Normal right atrial size. Left Atrium Mild left atrial dilatation. Mitral Valve Mitral valve thickened. Aortic Valve Structurally normal trileaflet aortic valve. No aortic stenosis. No aortic regurgitation. Tricuspid Valve Tricuspid valve not well visualized, grossly normal. Trace tricuspid regurgitation. No evidence of pulmonary hypertension. Pulmonic Valve Pulmonic valve not well visualized, grossly normal. Trace pulmonic regurgitation. Pericardium No pericardial effusion. Great Vessels Normal size aortic root. CONCLUSIONS Normal size left ventricle. Moderate concentric left ventricular hypertrophy. Normal left ventricular ejection fraction visually estimated at > 60%. Mild left atrial dilatation. Trace tricuspid regurgitation. Trace pulmonic regurgitation. Fadi Cash M.D. (Electronically Signed) Final Date: 16 July 2017 09:57 MEASUREMENTS (Male / Female) Normal Values 2D ECHO LV Diastolic Diameter PLAX 4.7 cm 4.2 - 5.9 / 3.9 - 5.3 cm LV Systolic Diameter PLAX 3.1 cm 2.1 - 4.0 cm LV Fractional Shortening PLAX 34.0 % 25 - 46 % LV Ejection Fraction 2D Teich 63.0 % IVS Diastolic Thickness 1.5 cm LVPW Diastolic Thickness 1.5 cm LV Relative Wall Thickness 0.6 RV Internal Dim ED PLAX 3.1 cm 1.9 - 3.8 cm LVOT Diameter 2.0 cm Aortic Root Diameter 2.8 cm LA Systolic Diameter LX 4.4 cm 3.0 - 4.0 / 2.7 - 3.8 cm LA Volume 42.0 cm 18 - 58 / 22 - 52 cm Ascending Aorta Diameter 3.4 cm DOPPLER AV Peak Velocity 159.0 cm/s AV Peak Gradient 10.1 mmHg AV Mean Velocity 114.0 cm/s AV Mean Gradient 6.0 mmHg AV Velocity Time Integral 33.7 cm LVOT Peak Velocity 149.0 cm/s LVOT Peak Gradient 8.9 mmHg LVOT Mean Velocity 90.4 cm/s LVOT Mean Gradient 4.0 mmHg LVOT Velocity Time Integral 29.2 cm LVOT Stroke Volume 91.7 cm AV Area Cont Eq vti 2.7 cm AV Area Cont Eq pk 2.9 cm MV Peak Velocity 91.7 cm/s MV Peak Gradient 3.4 mmHg MV Mean Velocity 54.1 cm/s MV Mean Gradient 1.0 mmHg Mitral E Point Velocity 75.8 cm/s Mitral A Point Velocity 42.0 cm/s Mitral E to A Ratio 1.8 MV PHT Velocity 99.9 cm/s MV Deceleration [place] 452.0 cm/s MV Pressure Half Time 66.3 ms MV Area PHT 3.3 cm MV Deceleration Time 161.0 ms TR Peak Velocity 108.0 cm/s TR Peak Gradient 4.7 mmHg Right Atrial Pressure 5.0 mmHg Pulmonary Artery Systolic Pressu 9.7 mmHg Right Ventricular Systolic Press 9.7 mmHg PV Peak Velocity 156.0 cm/s PV Peak Gradient 9.7 mmHg PV Mean Velocity 104.0 cm/s PV Mean Gradient 5.0 mmHg PV Velocity Time Integral 31.3 cm LV E' Lateral Velocity 15.4 cm/s Mitral E to LV E' Lateral Ratio 4.9 LV E' Septal Velocity 8.3 cm/s Mitral E to LV E' Septal Ratio 9.1
--- NOTE | 2017-07-16 10:21 | PN- Housestaff ---
See Addendum Subjective Follow-up For: Pulmonary vascular congestion-acutely after fluid challenge Tele-Events Since Last Visit: No events. Subjective: No complaints. Review of Systems Constitutional: Reports: see HPI. Objective Last 24 Hrs of Vital Signs/I&O Vital Signs Date Time Temp Pulse Resp B/P B/P Pulse O2 O2 Flow FiO2 Mean Ox Delivery Rate 07/16 0654 98.3 66 18 116/80 94 Room Air 07/15 2056 99.1 67 18 146/74 93 Room Air 07/15 1838 Room Air Room Air 07/15 1611 74 140/60 07/15 1500 92 Nasal 4.0L Cannula 07/15 1500 97.6 74 20 140/90 92 Nasal 4.0L Cannula 07/15 1337 96.4 73 18 152/98 96 07/15 1305 95 Nasal 5.0L Cannula 07/15 1212 97.9 82 18 148/82 98 Nasal 70% Cannula 07/15 1055 98 Nasal 60% Cannula Intake & Output 07/16 1600 07/16 0800 06 0000 Intake Total 0 480 Output Total 800 250 Balance -800 230 Intake, Oral 0 480 Output, Urine 800 250 Patient 298 lb Weight Weight Bed scale Measurement Method Physical Exam General Appearance: Alert, Oriented X3, Cooperative Neck: Supple, No JVD Cardiovascular: Regular Rate, Normal S1, Normal S2 Lungs: Clear to Auscultation, Normal Air Movement Abdomen: Normal Bowel Sounds, Soft, No Tenderness Extremities: No Clubbing, No Cyanosis, No Edema Current Medications: Current Medications Sig/Kayla Start time Last Medication Dose Route Stop Time Status Admin Aspirin 325 MG ONCE ONE 07/15 1500 DC 07/15 PO 07/15 1501 1611 Atorvastatin Calcium 40 MG 1700 07/15 1700 AC / PO 1611 Metoprolol Tartrate 12.5 MG ONCE ONE 07/15 1500 DC / PO / 1501 1611 Last 24 Hrs of Lab/Anthony Results Last 24 Hrs of Labs/Mics: Laboratory Tests 07/16/17 0620: Anion Gap 9, Estimated GFR > 60, BUN/Creatinine Ratio 16.3, CBC w Diff NO MAN DIFF REQ, RBC 4.83, MCV 86.6, MCH 29.5, MCHC 34.0, RDW 13.6, MPV 7.8, Gran % 80.7 H, Lymphocytes % 14.4 L, Monocytes % 4.7, Eosinophils % 0, Basophils % 0.2, Absolute Granulocytes 7.7 H, Absolute Lymphocytes 1.4, Absolute Monocytes 0.4, Absolute Eosinophils 0, Absolute Basophils 0 07/15/17 1823: Troponin I 0.34 *H 07/15/17 1352: Troponin I 0.43 *H, Yfc-C-Oujknzizfrh Pept 160 H Assessment/Plan Assessment: 36-year-old gentleman with no known past medical history in the absence of any pre-existing systolic or diastolic dysfunction developed sudden onset acute pulmonary vascular congestion likely secondary to acute increase in LV diastolic pressure with rapid accumulation in the pulmonary interstitial and alveolar spaces in the setting of hypertensive urgency (extremely elevated diastolic pressures). Excess afterload in addition to fluid overload may have precipitated decompensation in Mr. Khan. 1. Acute pulmonary vascular congestion. Continue telemetry. ACS ruled out. TRC nebs. Continue aspirin and statin. Echocardiogram largely unremarkable. Outpatient nuclear stress test to risk stratify. Outpatient polysomnography to rule out obstructive sleep apnea. May check renal ultrasound to rule out renal artery stenosis, as this is a common risk factor for flash pulmonary edema with minimal fluid challenge. 2. Obstructive calculus. Patient declined ureteroscopy and stone retrieval. Outpatient follow-up with urology. Advised to stay thoroughly hydrated. Full code. Mechanical prophylaxis (Vinny Score - 2); and encourage ablation ( pharmacological prophylaxis not warranted) Regular diet. Problem List: 1. Kidney stone 2. Flash pulmonary edema Pain Ratin Pain Location: None Pain Goal: Remain pain free Pain Plan: PRN Tomorrow's Labs & Rationales: Not needed
--- NOTE | 2017-07-16 12:11 | PN- Cardiology ---
Subjective Subjective: Feeling better. No further shortness of breath. No chest pain. No palpitations. No diaphoresis. No nausea or vomiting. No lightheadedness or dizziness. He passed his renal stone, and it was collected with a strainer. Objective Vital Signs and I&Os Vital Signs Date Time Temp Pulse Resp B/P B/P Pulse O2 O2 Flow FiO2 Mean Ox Delivery Rate 07/16 0654 98.3 66 18 116/80 94 Room Air 07/15 2056 99.1 67 18 146/74 93 Room Air 07/15 1838 Room Air Room Air 07/15 1611 74 140/60 07/15 1500 92 Nasal 4.0L Cannula 07/15 1500 97.6 74 20 140/90 92 Nasal 4.0L Cannula 07/15 1337 96.4 73 18 152/98 96 07/15 1305 95 Nasal 5.0L Cannula 07/15 1212 97.9 82 18 148/82 98 Nasal 70% Cannula Intake & Output 07/16 1600 07/16 0800 07/16 0000 07/15 1600 07/15 0800 07/15 0000 Intake Total 0 480 800 Output Total 800 250 600 Balance -800 230 -600 800 Intake, IV 800 Intake, Oral 0 480 Output, Urine 800 250 600 Patient 298 lb 321 lb 330 lb Weight Weight Bed scale Bed scale Measurement Method Physical Exam: Gen: NAD HEENT: normal Lungs: clear to auscultation, normal resp. effort Heart: RRR, S1, S2, no murmurs Abdomen: Soft, nontender, no masses Extremities: No clubbing, cyanosis, or edema. Neuro: Alert and oriented x 3, cranial nerves intact Current Medications: Current Medications Sig/Kayla Start time Last Medication Dose Route Stop Time Status Admin Aspirin 325 MG ONCE ONE 07/15 1499 DC 07/15 PO 07/15 1501 1611 Atorvastatin Calcium 40 MG 1700 07/15 1700 AC / PO 1611 Metoprolol Tartrate 12.5 MG ONCE ONE 07/15 1500 DC 07/15 PO 07/15 1501 1611 Results Last 48 Hrs of Labs/Mics: Laboratory Tests 07/16/17 0620: Anion Gap 9, Estimated GFR > 60, BUN/Creatinine Ratio 16.3, CBC w Diff NO MAN DIFF REQ, RBC 4.83, MCV 86.6, MCH 29.5, MCHC 34.0, RDW 13.6, MPV 7.8, Gran % 80.7 H, Lymphocytes % 14.4 L, Monocytes % 4.7, Eosinophils % 0, Basophils % 0.2, Absolute Granulocytes 7.7 H, Absolute Lymphocytes 1.4, Absolute Monocytes 0.4, Absolute Eosinophils 0, Absolute Basophils 0 07/15/17 1823: Troponin I 0.34 *H 07/15/17 1352: Troponin I 0.43 *H, Ykr-R-Qzbbpxbxrzr Pept 160 H 07/15/17 0940: Urine Color YEL, Urine Clarity HAZY H, Urine pH 6.0, Ur Specific [place] 1.015, Urine Protein NEG, Urine Ketones NEG, Urine Nitrite NEG, Urine Bilirubin NEG, Urine Urobilinogen 0.2, Ur Leukocyte Esterase NEG, Ur Microscopic SEDIMENT EXAMINED, Urine RBC 25-50 H, Urine WBC 1-3 H, Ur Epithelial Cells FEW, Hyaline Casts RARE H, Urine Hemoglobin LARGE H, Urine Glucose NEG 07/15/17 0859: Kcr-E-Tkumpueyxvq Pept Cancelled, D-Dimer High Sensitivty Cancelled 07/15/17 0802: Anion Gap 10, Estimated GFR > 60, BUN/Creatinine Ratio 15.0, Glucose 150 H, Calcium 8.9, Total Bilirubin 0.9, AST 18, ALT 37, Alkaline Phosphatase 56, Troponin I 0.06, Vke-M-Jidofjsowzk Pept 69.8, Total Protein 6.6, Albumin 3.8, Globulin 2.8, Albumin/Globulin Ratio 1.4, CBC w Diff NO MAN DIFF REQ, RBC 5.74, MCV 85.6, MCH 29.4, MCHC 34.3, RDW 12.9, MPV 7.3 L, Gran % 79.6 H, Lymphocytes % 15.6 L, Monocytes % 3.2, Eosinophils % 1.3, Basophils % 0.3, Absolute Granulocytes 7.9 H, Absolute Lymphocytes 1.6, Absolute Monocytes 0.3, Absolute Eosinophils 0.1, Absolute Basophils 0 Recent Imaging Studies: Echocardiogram: Normal size left ventricle. Moderate concentric left ventricular hypertrophy. Normal left ventricular ejection fraction visually estimated at > 60%. Mild left atrial dilatation. Trace tricuspid regurgitation. Trace pulmonic regurgitation. Assessment/Plan Assessment/Plan Assessment: 1. Labile hypertension, improved 2. Hydroureteronephrosis secondary to obstructive renal calculus, resolved 3. Normal left ventricular ejection fraction with moderate left ventricular hypertrophy on echocardiogram 4. Pulmonary edema precipitated by IV fluid 5. Positive troponin, likely demand ischemia Plan: * Recommend nuclear stress test to rule out ischemia prior to discharge given the positive troponin * Continue telemetry monitoring * Continue to monitor blood pressure Continue telemetry? Yes
[2017-07-16 14:20] VITALS: BP 140/80
--- NOTE | 2017-07-16 14:39 | PN- Urology ---
Surgical Brief Attending Note Brief Attending Note: pt pain free overnight and states he has passed the stone: OK to dc from perspective
--- NOTE | 2017-07-16 17:14 | Discharge Summary ---
Visit Information Visit Dates Admission Date: 07/15/17 Discharge Date: 07/17/17 Hospital Course Course Attending Physician: Patricio Mack MD Primary Care Physician: Patient Has No Primary Care Dr Hospital Course: 28-year-old gentleman with no significant past medical history presented to [facility] ED on 07/15/2017 with a chief complaint of left lower quadrant pain sharp in 9/10 in intensity. It lasted for several hours before eventually resolving in the ED. Following this, patient was diagnosed with renal stone and associated hydroureteronephrosis. He was treated with pain medication and with IV fluids. After receiving about 800 cc of normal saline, he developed shortness of breath. He was noted to be hypoxemic to the 70s. X-ray showed mild pulmonary edema. CT of the chest was negative for pulmonary embolism, but revealed vascular congestion. Upon presentation patient had a very high blood pressure. Following fluid challenge, patient developed significant wheezes with concomitant shortness of breath. In the ED, he received breathing treatments, Decadron etc. Eventually his breathing symptoms improved and he was admitted to telemetry. 1. Acute pulmonary edema Myocardial infarction was ruled out with serial troponins and EKG. Troponin trend was 0.04 --> 0.43 --> 0.34. His EKG remained without any significant changes. He received an echocardiogram, which was largely unremarkable. He is due to receive a stress test with nuclear imaging on 2017, first half of which did not show any perfusion defects. He is due for the second half tomorrow in the nuclear medicine. He is discharged with ASA and atorvastatin for now. Strongly encouraged to follow up with as outpatient. 2. Hypertensive urgency Patient did come in with very high blood pressures. This was likely secondary to pain. During the course of his stay, his blood pressures remained within acceptable limits. Patient should be discharged with instructions to follow-up with primary care physician. He should also consider getting a outpatient sleep study. 3. Obstructing 4 mm calculus Patient was provided with hydration and encouraged to take p.o. intake. He was evaluated by urology who recommended ureteroscopy with stone retrieval. Patient refused to undergo the procedure. On 07/16/2017, patient spontaneously passed a stone. Patient should follow-up with urology as an outpatient. He should maintain a close follow-up with iron erector as an outpatient. Full code. Alps were used for DVT prophylaxis. Heart healthy diet. Complications: flash pulm edema and elevated troponin with resuscitation. Allergies: Coded Allergies: No Known Allergies (07/15/17) Significant Procedures: Stress test on 07/17/17 FINDINGS: The post stress images show the left ventricular chamber to be normal in size. There is a very small focus of minimally decreased activity present in the apical septal wall which likely represents an imaging artifact. No other foci of abnormally decreased activity are suggested. The stress images were obtained using a gated SPECT technique, which permits visualization of wall motion and calculation of the left ventricular ejection fraction. The left ventricular chamber is normal in size. No left ventricular wall motion abnormalities are present. The calculated left ventricular ejection fraction is 51% on the stress study. No previous study is available for comparison. IMPRESSION: Probable normal exercise stress myocardial perfusion study. ECHO CONCLUSIONS Normal size left ventricle. Moderate concentric left ventricular hypertrophy. Normal left ventricular ejection fraction visually estimated at > 60%. Mild left atrial dilatation. Trace tricuspid regurgitation. Trace pulmonic regurgitation. Fadi Cash M.D. CT angio of chest IMPRESSION: No CT evidence for pulmonary embolism. Nonspecific multifocal round glass opacification along with diffuse interlobular septal thickening. The appearance is nonspecific, though I favor that this represents vascular congestion or fluid overload over an infectious or inflammatory proces CXR on 07/15/17 IMPRESSION: Mildly asymmetric interstitial prominence present throughout both lungs. This is nonspecific, though could be chain sales representative of mild vascular congestion or lower respiratory tract viral infectious or inflammatory process. There are no focal consolidation Abdomen and pelvis CT on 07/15/17 IMPRESSION: Left grade 2 hydroureteronephrosis secondary to an obstructive 4 mm calculus at the left UVJ. Hepatic steatosis. Mild splenomegaly. 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 Pertinent Lab Results: as above Disposition Summary Disposition Principal Diagnosis: Acute pulmonary edema Additional Diagnosis: Hypertensive urgency Discharge Disposition: home or self care Discharge Instructions General Discharge Information Code Status: Full Code Patient's Diet: Regular diet Patient's Activity: As tolerated. Follow-Up Instructions/Appts: Please follow-up with primary care physician as an outpatient. Please follow-up with iron erector as an outpatient. Please follow-up with urologist as an outpatient. Medications at Discharge Discharge Medications: Start taking the following new medications: Atorvastatin Calcium (Atorvastatin Calcium) 40 MG TABLET 40 Milligram ORAL 5 PM Qty = 30 No Refills Instructions: . Comments: Last Taken: 07/16/17 Time: 5:30 PM Aspirin (Aspirin*) 81 MG TAB.CHEW 81 Milligram ORAL DAILY Qty = 30 No Refills Instructions: . Comments: Last Taken: 07/17/17 Time: 2:45 PM Copies To: Jalen MCKEON,Prasanth Holley; Luke MCKEON,Jarek Attending MD Review Statement Documenting Attending: Patricio Mack MD Other Findings: Patient with negative stress test and passed urinary stone with relief in nephrolithiasis. He can be discharged in stable condition.
[2017-07-16] MEDS ORDERED: ASPIRIN81 M4 PO (17:15)
[2017-07-16] MEDS ORDERED: ATORVASTATIN CA40 M1 PO (17:15)
--- NOTE | 2017-07-16 17:16 | Patient Discharge Instructions ---
Discharge Instructions General Discharge Information You were seen/treated for: Acute pulmonary edema Watch for these problems: Shortness of breath Chest pain Palpitations Very high blood pressures Special Instructions: Please follow-up with primary care physician as an outpatient. Please follow-up with community organization worker as an outpatient/ Please follow-up with urologist as an outpatient. Please follow up with Nuclear medicine tomorrow for completion of stress test imaging. Diet Continue normal diet: Yes Acute Coronary Syndrome Inclusion Criteria At DC or during hospital stay patient has or had the following: ACS DIAGNOSIS No Discharge Core Measures Meds if any: Prescribed or Continued at Discharge Meds if any: NOT Prescribed or Continued at Discharge Congestive Heart Failure Inclusion Criteria At DC or during hospital stay patient has or had the following: CHF DIAGNOSIS No Discharge Core Measures Meds if any: Prescribed or Continued at Discharge Meds if any: NOT Prescribed or Continued at Discharge Cerebrovascular accident Inclusion Criteria At DC or during hospital stay patient has or had the following: CVA/TIA Diagnosis No Discharge Core Measures Meds if any: Prescribed or Continued at Discharge Meds if any: NOT Prescribed or Continued at Discharge Venous thromboembolism Inclusion Criteria VTE Diagnosis No VTE Type NONE VTE Confirmed by (Test) NONE Discharge Core Measures - Per Current guidelines, there needs to be overlap - treatment for the first 5 days of Warfarin therapy. - If discharged on Warfarin prior to 5 days of - overlap therapy, the patient will need to be - assessed for post discharge needs including - *Post discharge parental anticoagulation - *Warfarin and/or parental anticoagulation education - *Follow up date to check INR post discharge At least 5 days overlap therapy as Inpatient No Meds if any: Prescribed or Continued at Discharge Note: Overlap Therapy is Warfarin and Anticoagulant Meds if any: NOT Prescribed or Continued at Discharge
--- NOTE | 2017-07-16 17:34 | NUCLEAR MEDICINE REPORT ---
EXAMINATION: NM MYOCARDIAL PERFUSION The patient was injected intravenously with 39.7 mCi technetium 99m Myoview at 12:40 PM on 07/16/2017 for a SPECT myocardial perfusion study, but because of an equipment malfunction, no images could be obtained.
[2017-07-16 22:35] VITALS: BP 152/78
[2017-07-17 06:50] VITALS: BP 122/78
--- NOTE | 2017-07-17 07:16 | PN- Housestaff ---
Gregor MCKEON,Phylicia 07/17/17 0716: Subjective Follow-up For: Stress test Elevated Troponin UPJ stone - passed Tele-Events Since Last Visit: sinus rhythm - sinus connie - 53-58 Subjective: seen and examined at [facility] NPO, denies any overnight issues. Eager to go home. Review of Systems Constitutional: Reports: see HPI. Objective Last 24 Hrs of Vital Signs/I&O Vital Signs Date Time Temp Pulse Resp B/P B/P Pulse O2 O2 Flow FiO2 Mean Ox Delivery Rate 07/17 0650 97.7 55 18 122/78 95 Room Air / 2235 97.9 63 18 152/78 95 Room Air 06/05 1600 95 Room Air /05 1420 98.1 63 18 140/80 95 Room Air / 0800 94 Room Air Intake & Output 07/17 0800 06/ 0000 06/05 1600 Intake Total 200 600 480 Output Total Balance 200 600 480 Intake, Oral 200 600 480 Physical Exam General Appearance: Alert, Oriented X3, Cooperative Skin: No Rashes, No Breakdown Skin Temp/Moisture Exam: Warm/Dry Sepsis Skin Exam (color): Normal for Ethnicity HEENT: Atraumatic, PERRLA, EOMI Neck: Supple Cardiovascular: Normal S1, Normal S2, No Murmurs Lungs: Clear to Auscultation, Normal Air Movement Abdomen: Normal Bowel Sounds, Soft, No Tenderness Neurological: Normal Gait, Normal Speech, Strength at 5/5 X4 Ext, Normal Tone, Sensation Intact Extremities: No Clubbing, No Cyanosis, No Edema Current Medications: Current Medications Sig/Kayla Start time Last Medication Dose Route Stop Time Status Admin Aspirin 81 MG DAILY 07/17 0900 AC 07/17 PO 1456 Atorvastatin Calcium 40 MG 1700 / 1700 AC 07/16 PO 1727 Patient Medication 1 ED ONE ONE 07/16 1645 ID Teaching ED 07/16 1646 Last 24 Hrs of Lab/Anthony Results Last 24 Hrs of Labs/Mics: Laboratory Tests 07/17/17 0616: Triglycerides 151 H, Cholesterol 146, LDL Cholesterol, Calc 85, HDL Cholesterol 31 L, Cholesterol/HDL Ratio 5 H Assessment/Plan Assessment: 28-year-old gentleman with no significant past medical history presented to [facility] ED on 07/15/2017 with a chief complaint of left lower quadrant pain sharp in 9/10 in intensity. It lasted for several hours before eventually resolving in the ED. Following this, patient was diagnosed with renal stone and associated hydroureteronephrosis. He was treated with pain medication and with IV fluids. After receiving about 800 cc of normal saline, he developed shortness of breath. He was noted to be hypoxemic to the 70s. X-ray showed mild pulmonary edema. CT of the chest was negative for pulmonary embolism, but revealed vascular congestion. Upon presentation patient had a very high blood pressure. Following fluid challenge, patient developed significant wheezes with concomitant shortness of breath. In the ED, he received breathing treatments, Decadron etc. Eventually his breathing symptoms improved and he was admitted to telemetry. 1. Acute pulmonary edema. Myocardial infarction was ruled out with serial troponins and EKG. Troponin trend was 0.04 --> 0.43 --> 0.34. His EKG remained without any significant changes. He received an echocardiogram, which was largely unremarkable. He is due to receive a stress test with nuclear imaging on 07/17/2017, first half of which did not show any perfusion defects. He is due for the second half tomorrow in the nuclear medicine. He is discharged with ASA and atorvastatin for now. Strongly encouraged to follow up with as outpatient. 2. Hypertensive urgency. Patient did come in with very high blood pressures. This was likely secondary to pain. During the course of his stay, his blood pressures remained within acceptable limits. 3. Obstructing 4 mm calculus. Patient was provided with hydration and encouraged to take p.o. intake. He was evaluated by urology who recommended ureteroscopy with stone retrieval. Patient refused to undergo the procedure. He should maintain a close follow-up with pit recorder as an outpatient. Full code. Alps were used for DVT prophylaxis. Heart healthy diet. Problem List: 1. Flash pulmonary edema 2. Kidney stone Pain Ratin Pain Location: n/a Pain Goal: Pain 4 or less Pain Plan: n/a Tomorrow's Labs & Rationales: none Patricio Mack 07/17/17 1046: Attending MD Review Statement Attending Statement Attending MD Statement: examined this patient, discuss w/resident/PA/BOAT CAPTAIN, agreed w/resident/PA/BOAT CAPTAIN, discussed with family, reviewed EMR data (avail), discussed with nursing, discussed with case mgmt, reviewed images, amended to note Attending Assessment/Plan: No new complaints, Awaiting stress test today, NPO for test. Patient can be discharged home after stress test is negative and follow up outpatient PCP in few weeks of discharge.
--- NOTE | 2017-07-17 12:37 | PN- Cardiology ---
Objective Vital Signs and I&Os Vital Signs Date Time Temp Pulse Resp B/P B/P Pulse O2 O2 Flow FiO2 Mean Ox Delivery Rate 07/17 0650 97.7 55 18 122/78 95 Room Air 07/16 2235 97.9 63 18 152/78 95 Room Air 07/16 1600 95 Room Air 07/16 1420 98.1 63 18 140/80 95 Room Air Intake & Output 07/17 1600 07/17 0800 07/17 0000 / 1600 07/16 0800 07/16 0000 Intake Total 200 600 480 0 480 Output Total 800 250 Balance 200 600 480 -800 230 Intake, Oral 200 600 480 0 480 Output, Urine 800 250 Patient 298 lb Weight Weight Bed scale Measurement Method Current Medications: Current Medications Sig/Kayla Start time Last Medication Dose Route Stop Time Status Admin Aspirin 81 MG DAILY 07/17 0900 AC PO Atorvastatin Calcium 40 MG 1700 07/15 1700 AC 07/16 PO 1727 Patient Medication 1 ED ONE ONE 07/16 1645 UT Teaching ED 07/16 1646 Results Last 48 Hrs of Labs/Mics: Laboratory Tests 07/17/17 0616: Triglycerides 151 H, Cholesterol 146, LDL Cholesterol, Calc 85, HDL Cholesterol 31 L, Cholesterol/HDL Ratio 5 H 07/16/17 0620: Anion Gap 9, Estimated GFR > 60, BUN/Creatinine Ratio 16.3, CBC w Diff NO MAN DIFF REQ, RBC 4.83, MCV 86.6, MCH 29.5, MCHC 34.0, RDW 13.6, MPV 7.8, Gran % 80.7 H, Lymphocytes % 14.4 L, Monocytes % 4.7, Eosinophils % 0, Basophils % 0.2, Absolute Granulocytes 7.7 H, Absolute Lymphocytes 1.4, Absolute Monocytes 0.4, Absolute Eosinophils 0, Absolute Basophils 0 07/15/17 1823: Troponin I 0.34 *H 07/15/17 1352: Troponin I 0.43 *H, Iqd-T-Mtojnjxtbau Pept 160 H Assessment/Plan Assessment/Plan Assessment: 1. Labile hypertension, improved 2. Hydroureteronephrosis secondary to obstructive renal calculus, resolved 3. Normal left ventricular ejection fraction with moderate left ventricular hypertrophy on echocardiogram 4. Pulmonary edema precipitated by IV fluid 5. Positive troponin, likely demand ischemia Plan: * Await nuclear stress test to rule out ischemia prior to discharge given the positive troponin * Continue telemetry monitoring pending results * Continue to monitor blood pressure Continue telemetry? No
--- NOTE | 2017-07-17 13:51 | NUCLEAR MEDICINE REPORT ---
EXERCISE STRESS SPECT MYOCARDIAL PERFUSION IMAGING STUDY WITH GATED SPECT IMAGES: CLINICAL INDICATION: Chest pain. PROCEDURE: Regional myocardial perfusion was assessed during stress following the intravenous administration of 48.6 mCi Tc 99m Myoview. Stress was performed using the standard Omar protocol, with the patient reaching a peak heart rate of 89% maximal predicted heart rate. Single photon emission tomographic (SPECT) images were obtained. SPECT images were acquired in a 64 x 64 matrix of 64 projections over 180 degrees. These were reconstructed into standard short axis, horizontal and vertical long axis cardiac projections. FINDINGS: The post stress images show the left ventricular chamber to be normal in size. There is a very small focus of minimally decreased activity present in the apical septal wall which likely represents an imaging artifact. No other foci of abnormally decreased activity are suggested. The stress images were obtained using a gated SPECT technique, which permits visualization of wall motion and calculation of the left ventricular ejection fraction. The left ventricular chamber is normal in size. No left ventricular wall motion abnormalities are present. The calculated left ventricular ejection fraction is 51% on the stress study. No previous study is available for comparison. IMPRESSION: Probable normal exercise stress myocardial perfusion study.
[2017-07-17] MEDS ORDERED: ASPIRIN81 M4 PO (14:35)
[2017-07-17] MEDS ORDERED: ATORVASTATIN CA40 M1 PO (14:35)
== END 2017-07-17 15:25 | DRG 189 ==
LOC: ERH 07:17 → ERHI 12:27 → 1NO 12:27 → ENRESERV 13:12 → ENTRNSPT 13:50 → EDTRNSPTSTS 13:56 → 1NO 14:03 → CMPTRNSPT 14:18 → 1NO 14:50 → ENPENDDIS 07-17 14:35 → 1NO 07-17 15:25
PROVIDERS: Internal Medicine; Internal Medicine Hematology & Oncology; Student in an Organized Health Care Education/Training Program
PROC: 4A02XM4 Measurement of Cardiac Total Activity, External Approach (ICD-10-PCS; principal; 2017-07-17)
PROC: 3E033HZ Introduction of Radioactive Substance into Peripheral Vein, Percutaneous Approach (ICD-10-PCS; principal; 2017-07-17)
DX: J81.0 Acute pulmonary edema (principal); N20.0 Calculus of kidney; I16.0 Hypertensive urgency
CPT/HCPCS: 1NP; 36592; 71045; 74176; 78452; 81001; 82436; 93005; 93010; 93306; 96361; 96374; 96375; 96376; 99291; A9502; J1100; J2405; J3490